=== PATIENT | male | born 1970 | race Caucasian/White ===

== ENCOUNTER 2016-09-05 06:00 | Emergency (ER) | payer OTHER ==
[~2016-09-05] VITALS: Ht 175.3 cm; Wt 74.8 kg
[~2016-09-05 06:00] MED LIST: BUPR100T99 PO; GLYBURIDE; IBUP-1955 PO; MANNITOL; METF10002 PO; QUET200T PO; ZOCOR
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
[2016-09-05] MEDS ORDERED: IBUPROFEN 600 MG TABLET PO ONE ×2 (06:22→06:30)
--- NOTE | 2016-09-05 06:49 | NUR ---
Per dr Gutiérrez, patient is okay to be discharged. Patient discharged to home in stable condition. Written and verbal after care instructions given. Patient verbalizes understanding of instruction. Patient is ambulatory with steady gait.
[2016-09-05 06:50] VITALS: BP 148/98
== END 2016-09-05 06:51 | disposition home or self-care (01) ==
LOC: ER 06:02
DX: S63.502A Unspecified sprain of left wrist, initial encounter (principal); I10 Essential (primary) hypertension; E11.9 Type 2 diabetes mellitus without complications; E78.00 Pure hypercholesterolemia, unspecified; F31.9 Bipolar disorder, unspecified; F17.200 Nicotine dependence, unspecified, uncomplicated; Z59.0 Homelessness; W22.8XXA Striking against or struck by other objects, initial encounter; Y93.89 Activity, other specified; Y92.89 Other specified places as the place of occurrence of the external cause; Y99.8 Other external cause status
CPT/HCPCS: 73110; A4606; Z7610

== ENCOUNTER 2016-09-15 02:50 | Emergency (ER) | payer OTHER ==
[~2016-09-15] VITALS: Ht 172.7 cm; Wt 68.0 kg
[2016-09-15 02:50] VITALS: BP 131/84
[2016-09-15] MEDS ORDERED: IBUPROFEN 600 MG TABLET PO ONE ×2 (03:55→04:00)
== END 2016-09-15 04:06 | disposition home or self-care (01) ==
LOC: ER 02:50
DX: S09.90XA Unspecified injury of head, initial encounter (principal); S00.01XA Abrasion of scalp, initial encounter; I10 Essential (primary) hypertension; E11.9 Type 2 diabetes mellitus without complications; F31.9 Bipolar disorder, unspecified; E78.00 Pure hypercholesterolemia, unspecified; F17.200 Nicotine dependence, unspecified, uncomplicated; W22.8XXA Striking against or struck by other objects, initial encounter; Y93.89 Activity, other specified; Y92.89 Other specified places as the place of occurrence of the external cause; Y99.9 Unspecified external cause status
CPT/HCPCS: 99284; A4606; A6403; Z7610

== ENCOUNTER 2016-10-13 20:26 | Emergency (ER) | payer OTHER ==
--- NOTE | 2016-10-13 20:31 | NUR ---
PT CALLED TO TRIAGE, NO RESPONSE.
--- NOTE | 2016-10-13 20:49 | NUR ---
CALLED; NO ANSWER
--- NOTE | 2016-10-13 21:12 | NUR ---
CALLED AGAIN; NOT IN LOBBY
== END 2016-10-13 21:13 | disposition left against medical advice (07) ==
LOC: ER 20:31
DX: Z53.21 Procedure and treatment not carried out due to patient leaving prior to being seen by health care provider (principal)

== ENCOUNTER 2017-01-21 13:29 | Emergency (ER) | payer OTHER ==
--- NOTE | 2017-01-21 13:49 | NUR ---
PATIENT IS NOT IN ED WAITING ROOM, CALLED 3 TIMES, NO RESPOND. WILL TRY AGAIN LATER.
== END 2017-01-21 14:33 | disposition left against medical advice (07) ==
LOC: ER 13:33
DX: Z53.21 Procedure and treatment not carried out due to patient leaving prior to being seen by health care provider (principal)

== ENCOUNTER 2017-02-27 20:43 | Emergency (ER) | payer OTHER ==
--- NOTE | 2017-02-27 20:52 | NUR ---
CALLED PT IN [facility], NO RESPONSE
--- NOTE | 2017-02-27 21:04 | NUR ---
CALLED PT IN [facility], NO RESPONSE
--- NOTE | 2017-02-27 22:03 | NUR ---
CALLED PT IN [facility], NO RESPONSE
--- NOTE | 2017-02-27 22:42 | NUR ---
CALLED PT IN [facility], NO RESPONSE
== END 2017-02-27 22:43 | disposition home or self-care (01) ==
LOC: ER 20:53
DX: Z53.21 Procedure and treatment not carried out due to patient leaving prior to being seen by health care provider (principal)

== ENCOUNTER 2017-08-12 08:46 | Emergency (ER) | payer OTHER ==
[~2017-08-12] VITALS: Ht 175.3 cm; Wt 77.1 kg
--- NOTE | 2017-08-12 08:50 | NUR ---
PRESENTS TO ER C/O CHRONIC BACK PAIN WORSEN X1 DAY [employer]. A/OX 4. BREATHING EVEN AND UNLABORED. NO SOB, NAD, VITALS STABLE. SAFETY AND COMFORT MEASURES IN PLACE. AWAITING MD ORDERS.
[2017-08-12] MEDS ORDERED: KETOROLAC TROMETHAMINE INJ 60 MG/2 ML VIAL IM ONE ×2 (09:34→10:00)
--- NOTE | 2017-08-12 11:07 | NUR ---
PATIENT TAKEN TO XRAY
--- NOTE | 2017-08-12 11:14 | NUR ---
PT BACK FROM XRAY
[2017-08-12 12:30] VITALS: BP 148/86
--- NOTE | 2017-08-12 12:33 | NUR ---
Patient discharged to home in stable condition. Written and verbal after care instructions given. Patient verbalizes understanding of instruction.
== END 2017-08-12 12:32 | disposition home or self-care (01) ==
LOC: ER 08:48
DX: S39.92XA Unspecified injury of lower back, initial encounter (principal); E11.9 Type 2 diabetes mellitus without complications; E78.00 Pure hypercholesterolemia, unspecified; G89.29 Other chronic pain; I10 Essential (primary) hypertension; F10.10 Alcohol abuse, uncomplicated; F17.200 Nicotine dependence, unspecified, uncomplicated; F31.9 Bipolar disorder, unspecified; W19.XXXA Unspecified fall, initial encounter; Y93.89 Activity, other specified; Y92.89 Other specified places as the place of occurrence of the external cause; Y99.8 Other external cause status
CPT/HCPCS: 72074; 72110; 96372; 99284; A4606; J1885; Z7610

== ENCOUNTER 2017-09-14 21:19 | Emergency (ER) | payer OTHER ==
[~2017-09-14] VITALS: Ht 165.1 cm; Wt 68.0 kg
[~2017-09-14 21:19] MED LIST changes: +METF-442 PO; -METF10002 PO
[2017-09-14 21:30] VITALS: BP 118/64
[2017-09-14] MEDS ORDERED: OLANZAPINE 10 MG VIAL IM ONE (22:17)
[2017-09-14] MEDS ORDERED: LORAZEPAM INJ 2 MG/ML VIAL ONE (22:18)
[2017-09-14 22:21] LABS: BASOPHILS # (AUTO) 0.1 /CMM (0.0-0.2); BASOPHILS % (AUTO) 1.3 % (0.0-2.0); EOSINOPHILS % (AUTO) 3.4 % (0.0-6.0); HEMATOCRIT 45 % (39-51); HEMOGLOBIN 15.6 g/dL (13.5-17.5); LYMPHOCYTES # (AUTO) 2.2 /CMM (0.8-4.8); LYMPHOCYTES % (AUTO) 26.4 % (20.0-44.0); MEAN CORPUSCULAR HGB CONC 35 g/dl (31.0-36.0); MEAN CORPUSCULAR VOLUME 93 fL (80-96); MONOCYTES # (AUTO) 0.5 /CMM (0.1-1.30); MONOCYTES % (AUTO) 6.3 % (2.0-12.0); NEUTROPHILS # (AUTO) 5.3 /CMM (1.8-8.9); NEUTROPHILS % (AUTO) 62.6 % (43.0-81.0); PLATELET COUNT (AUTO) 259 /CMM (150-450); RDW COEFFICIENT OF VARIATION 12.5 (11.5-15.0); WHITE BLOOD COUNT (AUTO) 8.4 K/uL (4.3-11.0)
[2017-09-14 22:29] LABS: CREATININE 1.2 mg/dL (0.6-1.3); POTASSIUM 3.2 mmol/L (3.5-5.1)
[2017-09-14 22:38] LABS: ALBUMIN 3.9 g/dL (3.4-5.0); BILIRUBIN,DIRECT 0.1 mg/dL (0.0-0.2); BILIRUBIN,TOTAL 0.5 mg/dL (0.2-1.0); TOTAL PROTEIN, SERUM 7.1 g/dL (6.4-8.2)
[2017-09-14 22:41] LABS: SALICYLATE 1.4 mg/dL (2.8-20.0)
[2017-09-14] MEDS: OLANZAPINE 10 MG VIAL IM ONE (22:58)
[2017-09-14] MEDS: LORAZEPAM INJ 2 MG/ML VIAL IM ONE (22:58)
== END 2017-09-15 00:24 ==
LOC: ER 21:21
DX: F41.9 Anxiety disorder, unspecified (principal); F29 Unspecified psychosis not due to a substance or known physiological condition; F15.10 Other stimulant abuse, uncomplicated; G89.29 Other chronic pain; M54.9 Dorsalgia, unspecified; F31.9 Bipolar disorder, unspecified; E78.00 Pure hypercholesterolemia, unspecified; F10.10 Alcohol abuse, uncomplicated; F17.200 Nicotine dependence, unspecified, uncomplicated; I10 Essential (primary) hypertension; Z59.0 Homelessness
CPT/HCPCS: 36415; 80048-TC; 80076-TC; 85025-TC; A4606; G0480; J2060; J3490; Z7610

== ENCOUNTER 2018-05-05 22:08 | Emergency (ER) | payer MEDICAID, OTHER ==
[~2018-05-05] VITALS: Ht 175.3 cm; Wt 68.5 kg
--- NOTE | 2018-05-05 23:00 | NUR ---
Pt came in c/o rib pain, 8/10 on scale, unable to explain how and when it started, states he has flu-like symptoms as well. He is A, O/3-4, moves his extremities without assistance, breathing spontaneously to RA. Pt appears disheveled. Seen and evaluated by ILENE John, at [facility].
[2018-05-05] MEDS ORDERED: KETOROLAC TROMETHAMINE INJ 30 MG/ML VIAL ONE (23:09)
[2018-05-05] MEDS ORDERED: ACETAMINOPHEN 325 MG TABLET ONE (23:10)
[2018-05-05 23:16] LABS: BASOPHILS % (AUTO) 0.4 % (0.0-2.0); EOSINOPHILS % (AUTO) 0.3 % (0.0-6.0); HEMATOCRIT 38 % (39-51); HEMOGLOBIN 12.8 g/dL (13.5-17.5); LYMPHOCYTES % (AUTO) 11.2 % (20.0-44.0); MEAN CORPUSCULAR HGB CONC 34 g/dl (31.0-36.0); MEAN CORPUSCULAR VOLUME 96 fL (80-96); MONOCYTES # (AUTO) 0.8 /CMM (0.1-1.30); MONOCYTES % (AUTO) 8.7 % (2.0-12.0); NEUTROPHILS # (AUTO) 7.2 /CMM (1.8-8.9); NEUTROPHILS % (AUTO) 79.4 % (43.0-81.0); PLATELET COUNT (AUTO) 228 /CMM (150-450); RED BLOOD CELL COUNT(AUTO) 3.93 MIL/uL (4.5-6.0); WHITE BLOOD COUNT (AUTO) 9.1 K/uL (4.3-11.0)
[2018-05-05 23:27] LABS: CALCIUM, SERUM 8.6 mg/dL (8.5-10.1); CREATININE 0.9 mg/dL (0.6-1.3); POTASSIUM 3.3 mmol/L (3.5-5.1)
[2018-05-05] MEDS ORDERED: ACETAMINOPHEN 325 MG TABLET PO ONE (23:30)
[2018-05-05] MEDS ORDERED: KETOROLAC TROMETHAMINE INJ 60 MG/2 ML VIAL IM ONE (23:30)
[2018-05-06] MEDS ORDERED: POTASSIUM CHLORIDE 20 MEQ TAB.PRT.SR PO ONE ×2 (00:50→01:00)
[2018-05-06] MEDS ORDERED: CEFTRIAXONE 1 G VIAL ONE (00:55)
[2018-05-06] MEDS ORDERED: AZITHROMYCIN 250 MG TABLET ONE (00:55)
[2018-05-06] MEDS ORDERED: AZITHROMYCIN 250 MG TABLET PO ONE (01:00)
[2018-05-06] MEDS ORDERED: IV NS 0.9% 1,000 ML BAG IV ONE (01:00)
[2018-05-06] MEDS ORDERED: CEFTRIAXONE 1GM BAG (ER ONLY) 1 GM/50 ML PIGGYBACK IV ONE (01:00)
[2018-05-06 01:11] LABS: ALBUMIN 2.6 g/dL (3.4-5.0); BILIRUBIN,DIRECT 0.2 mg/dL (0.0-0.2); BILIRUBIN,TOTAL 0.4 mg/dL (0.2-1.0); TOTAL PROTEIN, SERUM 7.4 g/dL (6.4-8.2)
--- NOTE | 2018-05-06 01:28 | NUR ---
patient refused IV medications despite educating him on their importance in treating his condition, wants to leave AMA
[2018-05-06 01:35] VITALS: BP 135/83
== END 2018-05-06 01:37 | disposition left against medical advice (07) ==
LOC: ER 22:10
DX: J18.9 Pneumonia, unspecified organism (principal); R53.1 Weakness; D64.9 Anemia, unspecified; E87.6 Hypokalemia; R07.81 Pleurodynia; I10 Essential (primary) hypertension; E11.9 Type 2 diabetes mellitus without complications; F41.9 Anxiety disorder, unspecified; F31.9 Bipolar disorder, unspecified; E78.00 Pure hypercholesterolemia, unspecified; F17.200 Nicotine dependence, unspecified, uncomplicated; Z59.0 Homelessness; Z79.84 Long term (current) use of oral hypoglycemic drugs; Z79.899 Other long term (current) drug therapy
CPT/HCPCS: 36415; 71100-TC; 80048-TC; 80076-TC; 83605-TC; 85025-TC; A4216; A4606; J0696; J1885; J7030; Z7610

== ENCOUNTER 2019-05-05 11:57 | Emergency (ER) | payer SELFPAY ==
--- NOTE | 2019-05-05 12:05 | NUR ---
called for triage not in the waiting room
--- NOTE | 2019-05-05 12:10 | NUR ---
called for triage not in the waiting room
--- NOTE | 2019-05-05 12:13 | NUR ---
called for triage not in the waiting room
== END 2019-05-05 12:13 | disposition left against medical advice (07) ==
LOC: ER 11:57
DX: Z53.21 Procedure and treatment not carried out due to patient leaving prior to being seen by health care provider (principal)

== ENCOUNTER 2019-08-13 15:51 | Emergency (ER) | payer MEDICAID, OTHER ==
--- NOTE | 2019-08-13 15:58 | NUR ---
called in ed waiting room. no response.
--- NOTE | 2019-08-13 16:09 | NUR ---
CALLED IN WAITING ROOM. NO RESPONSE.
== END 2019-08-13 16:18 | disposition left against medical advice (07) ==
LOC: ER 15:55
DX: Z53.21 Procedure and treatment not carried out due to patient leaving prior to being seen by health care provider (principal)